=== PATIENT | female | born 1995 | race Caucasian/White ===

== ENCOUNTER → 2016-12-26 | Outpatient (CLI) | payer BC ==
[~2016-12-26] MED LIST: COLACE 100MG C100 MG PO; FEMARA2.5 MG PO; IBUPROFEN600 MG PO; NORCO 5-325 TA1 EACH PO; SYNTHROID50 MCG PO
== END ==
LOC: LAB 11:33
DX: N91.2 Amenorrhea, unspecified (principal)
CPT/HCPCS: 36415; 84702

== ENCOUNTER → 2016-12-27 | Outpatient (CLI) | payer BC | LOC: LAB 10:43 | DX: Z32.00 Encounter for pregnancy test, result unknown (principal) | CPT/HCPCS: 36415; 84702 ==

== ENCOUNTER → 2016-12-30 | Outpatient (CLI) | payer BC | LOC: LAB 13:40 | DX: O03.9 Complete or unspecified spontaneous abortion without complication (principal) | CPT/HCPCS: 36415; 84702 ==

== ENCOUNTER → 2017-01-23 | Outpatient (CLI) | payer BC ==
[2017-01-23 09:50] LABS: HEMOGLOBIN 13.1 gm/dl (12.3-15.3); RED BLOOD COUNT 4.46 M/UL (4.00-5.10); WHITE BLOOD COUNT 10.6 K/UL (4.5-11.0)
== END ==
LOC: OPSV2 08:00
PROVIDERS: Obstetrics & Gynecology
DX: Z01.812 Encounter for preprocedural laboratory examination (principal); N94.6 Dysmenorrhea, unspecified
CPT/HCPCS: 36415; 81001; 85025

== ENCOUNTER → 2017-02-06 | Day surgery (SDC) | payer BC ==
[~2017-02-06] VITALS: Ht 165.1 cm; Wt 65.8 kg
== END | disposition home or self-care (01) ==
LOC: OR 06:35
PROVIDERS: Obstetrics & Gynecology
PROC: 0WJJ4ZZ Inspection of Pelvic Cavity, Percutaneous Endoscopic Approach (ICD-10-PCS; principal; 2017-02-06 08:00)
DX: N94.6 Dysmenorrhea, unspecified (principal); N94.10 Unspecified dyspareunia; R10.2 Pelvic and perineal pain; E03.9 Hypothyroidism, unspecified; E07.9 Disorder of thyroid, unspecified; Z79.899 Other long term (current) drug therapy
CPT/HCPCS: 84703; J1100; J1885; J2250; J2270; J2405; J2710; J2795; J3010; J7120; Q9968

== ENCOUNTER 2021-01-03 15:49 | Outpatient (CLI) | payer BC, OTHER ==
[~2021-01-03 15:49] MED LIST changes: +VITAFOL-OB+DHA1 EACH PO
== END 2021-01-03 21:30 | disposition home or self-care (01) ==
LOC: GENOP 15:49
DX: O62.9 Abnormality of forces of labor, unspecified (principal); O26.893 Other specified pregnancy related conditions, third trimester; Z3A.38 38 weeks gestation of pregnancy
CPT/HCPCS: 81001; 83518; G0463

== ENCOUNTER 2021-01-05 06:03 | Inpatient (IN) | payer BC, OTHER ==
[2021-01-05 07:27] LABS: HEMOGLOBIN 12.4 gm/dl (12.3-15.3); RED BLOOD COUNT 4.46 M/UL (4.00-5.10); WHITE BLOOD COUNT 11.6 K/UL (4.5-11.0)
[2021-01-05] MEDS ORDERED: HYDROCODON-ACE1 EAC4 PO (12:45)
[2021-01-05] MEDS ORDERED: IBUPROFEN800 MG PO (12:45)
[2021-01-05] MEDS ORDERED: DOCUSATE SODIU100 MG PO (12:45)
[2021-01-06 06:24] LABS: HEMOGLOBIN 10.6 gm/dl (12.3-15.3)
== END 2021-01-06 14:34 | disposition home or self-care (01) | DRG 807 ==
LOC: GENOP 06:03 → OB 07:09
PROVIDERS: Obstetrics & Gynecology; ADMIT Obstetrics & Gynecology
PROC: 10E0XZZ Delivery of Products of Conception, External Approach (ICD-10-PCS; principal; 2021-01-05)
PROC: 10907ZC Drainage of Amniotic Fluid, Therapeutic from Products of Conception, Via Natural or Artificial Opening (ICD-10-PCS; 2021-01-05)
PROC: 3E0234Z Introduction of Serum, Toxoid and Vaccine into Muscle, Percutaneous Approach (ICD-10-PCS; 2021-01-05)
PROC: 3E02340 Introduction of Influenza Vaccine into Muscle, Percutaneous Approach (ICD-10-PCS; 2021-01-06)
DX: O99.344 Other mental disorders complicating childbirth (principal); Z37.0 Single live birth; Z3A.38 38 weeks gestation of pregnancy; F32.9 Major depressive disorder, single episode, unspecified; Z23 Encounter for immunization; O99.284 Endocrine, nutritional and metabolic diseases complicating childbirth; E03.9 Hypothyroidism, unspecified; F41.1 Generalized anxiety disorder
CPT/HCPCS: 36415; 51702; 82800; 85014; 85018; 85025; 87635; 90471; 90686; 90715; G0008; J2405; J2590; J2795; J7120

== ENCOUNTER 2022-01-20 06:31 | Inpatient (IN) | payer BC, OTHER ==
[~2022-01-20] VITALS: Ht 165.1 cm; Wt 86.2 kg
[~2022-01-20 06:31] MED LIST changes: +DOCUSATE SODIU100 MG PO; +HYDROCODON-ACE1 EAC4 PO; +IBUPROFEN800 MG PO
[2022-01-20 10:28] LABS: RED BLOOD COUNT 3.9 M/UL (4.00-5.10); WHITE BLOOD COUNT 11.4 K/UL (4.5-11.0)
[2022-01-20] MEDS ORDERED: COLACE 100MG C100 MG PO (13:49)
[2022-01-20] MEDS ORDERED: FERROUS SULFAT325 MG PO (13:49)
[2022-01-20] MEDS ORDERED: IBUPROFEN600 MG PO (13:49)
[2022-01-21 03:27] LABS: HEMOGLOBIN 10.7 gm/dl (12.3-15.3)
== END 2022-01-21 16:17 | disposition home or self-care (01) | DRG 807 ==
LOC: GENOP 06:31 → OB 10:00
PROVIDERS: ADMIT Obstetrics & Gynecology
PROC: 10E0XZZ Delivery of Products of Conception, External Approach (ICD-10-PCS; principal; 2022-01-20)
PROC: 10907ZC Drainage of Amniotic Fluid, Therapeutic from Products of Conception, Via Natural or Artificial Opening (ICD-10-PCS; 2022-01-20)
PROC: 4A1HXCZ Monitoring of Products of Conception, Cardiac Rate, External Approach (ICD-10-PCS; 2022-01-20)
PROC: 3E0234Z Introduction of Serum, Toxoid and Vaccine into Muscle, Percutaneous Approach (ICD-10-PCS; 2022-01-20)
DX: O99.344 Other mental disorders complicating childbirth (principal); Z37.0 Single live birth; Z3A.37 37 weeks gestation of pregnancy; Z20.822 Contact with and (suspected) exposure to COVID-19; F32.9 Major depressive disorder, single episode, unspecified; O99.284 Endocrine, nutritional and metabolic diseases complicating childbirth; E03.9 Hypothyroidism, unspecified; O99.334 Smoking (tobacco) complicating childbirth; F41.1 Generalized anxiety disorder; F17.210 Nicotine dependence, cigarettes, uncomplicated; Z80.3 Family history of malignant neoplasm of breast; Z83.3 Family history of diabetes mellitus; Z82.49 Family history of ischemic heart disease and other diseases of the circulatory system; Z81.1 Family history of alcohol abuse and dependence; Z23 Encounter for immunization
CPT/HCPCS: 36415; 81001; 85014; 85018; 85025; 90471; 90715; J0595; J2405; J2590; J7120; U0002